=== PATIENT | female | born 1975 | race Caucasian/White ===

== ENCOUNTER 2016-11-03 17:40 | Emergency (ER) | payer OTHER ==
[2016-11-03 18:14] LABS: BASOPHIL 0.3 % (0-2); EOSINOPHIL 1.7 % (0-5); HCT 40.6 % (37.0-47.0); HGB 13.4 g/dl (12.5-16.0); MCH 28.6 pg (25.0-31.0); MCV 86.8 fL (78.0-100.0); MONOCYTE 5.8 % (0-12); MPV 9.7 fL (6.0-9.5); NEUTROPHIL 59.2 % (41-80); PLT 337 K/uL (150-400); RBC 4.68 M/uL (4.20-5.40); WBC 11.1 K/uL (4.0-10.5)
[2016-11-03 18:25] LABS: ALBUMIN 4.3 g/dL (3.5-5.0); BILIRUBIN - TOTAL 0.2 mg/dL (0.1-1.0); CREATININE 0.7 mg/dL (0.5-1.0); GLOBULIN (CALCULATION) 3.7 g/dL (2.2-4.2)
== END 2016-11-03 19:30 | disposition home or self-care (01) ==
LOC: FER 17:40
PROVIDERS: Emergency Medicine
DX: M94.0 Chondrocostal junction syndrome [Tietze] (principal)
CPT/HCPCS: 36415; 71020; 80053; 84484; 85025; 87339; 87450; 93005; J1885